=== PATIENT | female | born 1985 | race Caucasian/White ===

== ENCOUNTER 2017-01-05 07:00 | Inpatient (IN) ==
--- OUTSIDE RECORDS SUMMARY | 2017-01-05 07:06 | External Medical Summary | Continuity of Care Document ---
:1985 Author Organization [facility] Address [address] [place], [place] [address] Phone Support Name Relationship Address Phone Pietro Villaseñor spouse [address] [phone] [place] [address] Allergies, Adverse Reactions, Alerts Substance Reaction Severity Status Sulfa (Sulfonamide Antibiotics) Hives Unknown Active Medications Medication Instructions Dosage Effective Dates Status Comments (start - stop) 27 mg-0.8 take 1 by Oral route Not Available - Active mg tablet every day Problems Condition Effective Dates (start - stop) Clinical Status Follow-Up, Routine - Encounter for suprvsn of normal - , third trimester 36 weeks gestation of - Irregular Menses Supervision of other high risk - pregnancies, second trimester Other malformation of placenta, second - trimester 18 weeks gestation of - Supervision of other high risk - pregnancies, second trimester Other malformation of placenta, second - trimester 22 weeks gestation of - Supervision of other high risk - pregnancies, second trimester Other malformation of placenta, second - trimester Encounter for suprvsn of normal - , second trimester 26 weeks gestation of - Supervision of other high risk - pregnancies, second trimester Spotting complicating , - second trimester Encounter for screening of - mother 18 weeks gestation of - Spotting complicating , first - trimester Encounter for suprvsn of normal - , first trimester 13 weeks gestation of - Spotting complicating , - second trimester 14 weeks gestation of - Spotting complicating , - second trimester 14 weeks gestation of - Other malformation of placenta, third - trimester Spotting complicating , third - trimester 28 weeks gestation of - Other malformation of placenta, third - trimester Encounter for suprvsn of normal - , third trimester 28 weeks gestation of - Encounter for suprvsn of normal - , first trimester 10 weeks gestation of - 14 weeks gestation of - Placenta previa with hemorrhage, - second trimester Encounter for suprvsn of normal - , second trimester Encounter for suprvsn of normal - , third trimester 30 weeks gestation of - Encounter for suprvsn of normal - , third trimester 32 weeks gestation of - Encounter for suprvsn of normal - , third trimester Encounter for screening of - mother 35 weeks gestation of - Encounter for suprvsn of normal - , third trimester 37 weeks gestation of - Encounter for suprvsn of normal - , third trimester 38 weeks gestation of - Vaginal Discharge - Active Irregular Menses - Active Fatigue/Malaise - Active Threatened , Antepartum - Active Dysmenorrhea, Secondary - Active Active Procedures Procedure Date OB Visit No Charge Results Test Name Date and Time Measure Units Reference Range Abnormal Flag Comments Unknown Advance Directives Directive Yes / No Effective Date File Name Unknown Encounters Encounter Practice Location Reason(s) Diagnoses Date Provider Care Team Description For Visit Members Emily [place] Encounter for [place] In Womens suprvsn of normal 6-201 Layla. [facility], , third 7 700 [address] [email or web address] weeks Medical 1522, gestation of [facility], [address], 120, [id number], [place], [place], tel:[phone] , [place]. tel: [phone] [facility] [place] Encounter for Aug-3 [place] In Womens suprvsn of normal 0-201 Layla. [facility], , third 7 700 [address] [email or web address] weeks Medical 1522, gestation of [facility], [address], 120, [id number], [place], tel:[phone] , [place]. tel: [phone] [facility] [place] Encounter for Aug-2 [place] In Womens suprvsn of normal 3-201 Layla. [facility], , third 7 700 PO Box [email or web address] weeks Medical 1522, gestation of [facility], [address], 120, , [place], [place], tel:[phone] , [place]. tel: [phone] [facility] [place] Encounter for Aug-1 [place] In Womens suprvsn of normal 4-201 Layla. [facility] [place], , third 7 700 PO Box trimesterEncounte Medical 1522, r for [facility], screening of [address], [email or web address] weeks 120, , gestation of [facility] [place], tel:[phone] , [place]. tel: [phone] Emily [place] Encounter for Rom-2 [place] In Womens suprvsn of normal 6-201 Layla. [facility] [place], , third 7 700 PO Box [email or web address] weeks Medical 1522, gestation of [facility], [address], 120, , [place], tel:[phone] , [place]. tel: [phone] [facility] [place] Encounter for Rom-1 [place] In Womens suprvsn of normal 2-201 Layla. [facility] [place], , third 7 700 PO Box [email or web address] weeks Medical 1522, gestation of [facility], [address], 120, [id number], [place], tel:[phone] , [place]. tel: [phone] Emily [place] Other Tyler-2 [place] In Womens malformation of 8-201 Layla. Health [place], placenta, third 7 700 PO Box trimesterEncounte Medical 1522, r for suprvsn of [facility], normal , Cr Barnard, third [email or web address] 120, [id number], weeks gestation [place], [place], tel:[phone] , [place]. tel: [phone] Emily [place] Other Tyler-2 [place] In Womens Ultrasound malformation of 8-201 Layla. Health [place], placenta, third 7 700 PO Box trimesterSpotting Medical 1522, complicating [facility] [place], , third Cr Barnard, [email or web address] weeks 120, , gestation of [place], tel:[phone] , [place]. tel: [phone] Emily [place] Supervision of Tyler-1 Sobbing Referring In Womens other high risk 2-201 Curtis. Provider: Health PA, pregnancies, 7 700 Layla PO Box second Medical Charlotte L, 1522, trimesterOther Center [address] [place] [address], malformation [address], Medical [place], placenta, second Suite Center [id number], trimesterEncounte 120, Cr 120, [place] r for suprvsn of [place], tel:+ normal , [place] second [id number], [id number]. [email or web address] weeks [place]. tel: gestation of tel: [phone] Emily [place] Supervision of May-1 [place] In Womens other high risk 6-201 Layla. [facility] [place], pregnancies, 7 700 PO Box second Medical 1522, trimesterOther [facility], malformation of DrCr, placenta, second 120, [id number], [email or web address] weeks [place], [place] gestation of [place], tel:[phone] [address] , [place]. tel: [phone] Emily [place] Supervision of Apr-1 [place] In Womens other high risk 9-201 Layla. [facility] PA, pregnancies, 7 700 PO Box second Medical 1522, trimesterOther [facility], malformation of [address], placenta, second 120, [id number], [email or web address] weeks [place], gestation of [place], tel:[phone] , [place]. tel: [phone] [facility] [place] Supervision of Apr-1 [place] In Womens Ultrasound other high risk 9-201 Lalya. Health PA, pregnancies, 7 700 PO Box second Medical 1522, trimesterSpotting [facility], complicating Cr [address], , second 120, [id number], trimesterEncounte [place], [place] for [place], tel: screening of [phone] [email or web address] weeks , [place]. gestation of tel: [phone] [facility] [place] 14 weeks Mar-2 [place] In Womens gestation of 3-201 Nery. Health PA, pregnancyPlacenta 7 700 PO Box previa with Medical 1522, hemorrhage, [facility], second Cr Barnard, trimesterEncounte 120, , r for suprvsn of [place], [place] normal , [place], tel:+ second trimester [phone] , [place]. tel: [phone] [facility] [place] Spotting Mar-2 [place] In Womens Ultrasound complicating 3-201 Layla. [facility], , second 7 700 PO Box [email or web address] weeks Medical 1522, gestation of [facility], [address], 120, , [place], tel:[phone] , [place]. tel: [phone] [facility] [place] Spotting Mar-2 [place] In Womens complicating 0-201 Layla. [facility], , second 7 700 PO Box [email or web address] weeks Medical 1522, gestation of [facility], [address], 120, [id number], [place], tel:[phone] , [place]. tel: [phone] [facility] [place] Spotting Mar-1 [place] In Womens complicating 5-201 Layla. [facility], , first 7 700 PO Box trimesterEncounte Medical 1522, r for suprvsn of [facility], normal , Cr Barnard, first [email or web address] 120, [id number], weeks gestation [place], of [place], tel: [phone] , [place]. tel: [phone] [facility] [place] Encounter for Feb-2 [place] In Womens suprvsn of normal 0-201 Layla. Health DICK, , first 7 700 PO Box [email or web address] weeks Medical 1522, gestation of [facility], [address], 120, [id number], [place], [place], tel: [phone] , [place]. tel: [phone] [facility] [place] Irregular Menses Feb-0 [place] In Womens 7-201 Nery. Day JENNINGS, 7 700 [facility] 1522, [address] [place], [facility], 120, [id number], [place], [place], tel: [phone] , [place]. tel: [phone] Emily [place] Oct-2 [place] In Womens Follow-Up, 0-201 Layla. Health DICK, Routine 5 700 [facility] 1522, [address] [place], [facility] [place], 120, [id number], [facility] [place], tel: [phone] , [place]. tel: [phone] Emily [place] Rom-0 Charlotte Referring In Womens 8-201 Layla. Provider: Health DICK, 5 700 Layla PO Box Medical Charlotte L, 1522, [address], [facility] [place], 120, [place] [id number], [place] [facility] 120, [facility], [place], tel: [phone] [place], , [place]. [id number]. tel: tel: [phone] Emily [place] Apr-0 [place] In Womens 2-201 Layla. Day JENNINGS, 4 700 [facility] 1522, [address] [place], [facility] [place], 120, [id number], [facility], tel:[phone] [phone] , . tel: [phone] Family History Family Member Diagnosis Age At Onset No family history of Ovarian Cancer No family history of Hypertension No family history of Kidney Problems No family history of Epilepsy Maternal Grandmother Stroke No family history of Diabetes Paternal Grandmother Uterine Cancer No family history of Breast Cancer No family history of Thyroid Disorder No family history of Lung Disease No family history of Osteoporosis Maternal Grandfather Cardiovascular Disease Maternal Grandmother Cancer, colon Immunizations Vaccine Date Status Comments Tdap completed Source: New Immunization Record Tdap completed Source: New Immunization Record Payers Payer name Insurance type Covered alliance party ID Authorization(s) Med[employer] [place] [id number] [employer] Share [place] [id number] [employer] [place] [id number] [employer] Share Ins [place] [id number] Social History Type Description Quantity Date Captured Alcohol Use Details No Caffeine Use Details Unknown Tobacco Use Status Unknown Smoking Status Never smoker Vital Signs Date / Height Weight BMI Pulse Blood Temperature Respiratory Body Head BMI Time: Rate Pressure Rate Surface Circumference percentile Area Unknown Chief Complaint And Reason For Visit Unknown Chief Complaint And Reason For Visit Reason For Referral Reason For Referral Unknown Plan Of Care Date Type Action Status Appointment Fanny Villaseñor BOOKED Future Order: Radiology Order Complete OB Ultrasound > 14 Ordered Weeks ([id number]) Future Order: Radiology Order Ultrasound, OB Limited ([id number]) Ordered Future Order: Radiology Order Ultrasound, OB Limited ([id number]) Ordered Date Type Problem Goal Intervention Status Start Date Unknown. History Of Present Illness Encounter Date Complaint History Of Present Illness This patient has no known history of present illness Functional Status Encounter Date Functional Assessment Cognitive Assessment Unknown Medications Administered Medication Instructions Dosage Effective Dates (start - stop) Status Comments Drug Treatment Unknown Instructions Date Instruction Additional Information HIV and other routine tests risk factors identified by history anticipated course of care nutrition and weight gain counseling, special diet toxoplasmosis precautions (cats / raw meat) sexual activity exercise indications for ultrasound influenza vaccine environmental / work hazards travel new ob handbook Acog Docs use of any medications (including supplements, vitamins, herbs, OTC drugs) domestic violence seat belt use childbirth classes / hospital facilities hospital registration genetic testing
--- OUTSIDE RECORDS SUMMARY | 2017-01-05 07:06 | External Medical Summary | Continuity of Care Document ---
:1985 Author Organization [facility] Address [address] [place], [place] [id number] Phone Support Name Relationship Address Phone Pietro Villaseñor spouse [address] [phone] [place] [address] Allergies, Adverse Reactions, Alerts Substance Reaction Severity [...] - mother 35 weeks gestation of - Irregular Menses Supervision [...] third trimester 28 weeks gestation of - 10 weeks gestation of - Encounter for suprvsn of normal - , first trimester 14 weeks gestation of - Placenta previa with hemorrhage, - second trimester Encounter for suprvsn of normal - , second trimester Encounter for suprvsn of normal - , third trimester 30 weeks gestation of - Encounter for suprvsn of normal - , third trimester 32 weeks gestation of - Encounter for suprvsn of normal - , third trimester 36 weeks gestation of - Encounter for suprvsn of normal - , third trimester 37 weeks gestation of - Vaginal Discharge - Active Irregular Menses - Active Fatigue/Malaise - Active Threatened , Antepartum - Active Dysmenorrhea, Secondary - Active Active Procedures Procedure Date OB Visit No Charge Cult, pathgnc orgnsm, screen Results Test Name Date and Time Measure Units Reference Range Abnormal Flag Comments Panel Description: STREPTOCOCCUS, GROUP B CULTURE STREPTOCOCCUS, GROUP B 15:23:00 SEE NOTE STREPTOCOCCUS, GROUP B CULTURE CULTURE MICRO NUMBER: [id number] TEST STATUS: FINAL SPECIMEN SOURCE: VAGINAL/ANORECTAL SPECIMEN QUALITY: ADEQUATE RESULT: No group B Streptococcus isolatedTest performed at [id number] [place] [address]Qwusdlmg: SANTI VALDEZ DO,MPH Advance Directives Directive Yes / No Effective Date File Name Unknown Encounters Encounter Practice Location Reason(s) Diagnoses Date Provider Care Team Description For Visit Members Emily [place] Encounter for Aug-3 [place] In Womens suprvsn of normal 0-201 Layla. [facility], , third 7 700 PO Box [email or web address] weeks Medical 1522, gestation of [facility], [address], 120, , [place], [place], tel:[phone] [address] , [place]. tel: [phone] Emily [place] Encounter for Aug-2 [place] In Womens suprvsn of normal 3-201 Layla. [facility], , third 7 700 PO Box [email or web address] weeks Medical 1522, gestation of [facility], [address], 120, , [place], [place], tel:[phone] , [place]. tel: [phone] Emily [place] Encounter for Aug-1 [place] In Womens suprvsn of normal 4-201 Layla. [facility], , third 7 700 PO Box trimesterEncounte Medical 1522, r for [facility], screening of [address], [email or web address] weeks 120, , gestation of [facility] [place], tel:[phone] , [place]. tel: [phone] Emily [place] Encounter for Rom-2 [place] In Womens suprvsn of normal 6-201 Layla. [facility] PA, , third 7 700 PO Box [email or web address] weeks Medical 1522, gestation of [facility], [address], 120, [id number], [place], tel:[phone] , [place]. tel: [phone] Emily [place] Encounter for Rom-1 [place] In Womens suprvsn of normal 2-201 Layla. [facility] PA, , third 7 700 PO Box weeks Medical 1522, gestation of [facility], [address], 120, [id number], [place], [place], tel:[phone] , [place]. tel: [phone] Emily [place] Other Tyler-2 [place] In Womens malformation of 8-201 Layla. Health PA, placenta, third 7 700 PO Box trimesterEncounte Medical 1522, r for suprvsn of [facility], normal , Cr [address], third [email or web address] 120, [id number], weeks gestation [place], [place], tel:[phone] , [place]. tel: [phone] Emily [place] Other Tyler-2 [place] In Womens Ultrasound malformation of 8-201 Layla. Health PA, placenta, third 7 700 PO Box trimesterSpotting Medical 1522, complicating [facility] [place], , third Cr Barnard, [id number] weeks 120, [id number], gestation of [place], tel:901 , [place]. tel: [phone] Emily [place] Supervision of Tyler-1 Sobbing Referring In Womens other high risk 2-201 Curtis. Provider: Health PA, pregnancies, 7 700 Layla PO Box second Medical Charlotte L, 1522, trimesterOther Center [address] [place] [address], mal[address], Medical [place], placenta, second [address] [id number], trimesterEncounte 120, Cr 120, [place] r for suprvsn of [place], tel:+ normal , [place], second [address], [id number]. [email or web address] weeks [place]. tel: gestation of tel: [phone] Emily [place] Supervision of May- [place] In Womens other high risk 6-201 Layla. [facility] PA, pregnancies, 7 700 PO Box second Medical 1522, trimesterOther [facility], malformation of Cr Barn[address], placenta, second 120, [id number], [email or web address] weeks [place], gestation of [place], tel: [phone] , [place]. tel: [phone] Emily [place] Supervision of Apr-1 [place] In Womens other high risk 9-201 Layla. Health PA, pregnancies, 7 700 PO Box second Medical 1522, trimesterOther [facility], malformation of [address], placenta, second 120, [id number], [email or web address] weeks [place], gestation of [place], tel:[phone] , [place]. tel: [phone] Emily [place] Supervision of Apr-1 [place] In Womens Ultrasound other high risk 9-201 Layla. Health PA, pregnancies, 7 700 PO Box second Medical 1522, trimesterSpotting [facility], complicating [address], , second 120, [id number], trimesterEncounte [place], [place], tel:+ screening of [phone] [email or web address] weeks , [place]. gestation of tel: [phone] [facility] [place] 14 weeks Mar-2 [place] In Womens gestation of 3-201 Nery. Health DICK, pregnancyPlacenta 7 700 PO Box previa with Medical 1522, hemorrhage, [facility], second Cr Barnard, trimesterEncounte 120, , r for suprvsn of [place], normal , [place], tel:+ second trimester [phone] , [place]. tel: [phone] Emily [place] Spotting Mar-2 [place] In Womens Ultrasound complicating 3-201 Layla. Health PA, , second 7 700 PO Box weeks Medical 1522, gestation of [facility], [address], 120, , [place], tel:[phone] , [place]. tel: [phone] Emily [place] Spotting Mar-2 [place] In Womens complicating 0-201 Layla. [facility] PA, , second 7 700 PO Box [email or web address] weeks Medical 1522, gestation of [facility], [address], 120, [id number], [place], tel:[phone] , [place]. tel: [phone] Emily [place] Spotting Mar-1 [place] In Womens complicating 5-201 Layla. [facility], , first 7 700 PO [facility], [facility], normal , Cr Barnard, first [email or web address] 120, [id number], weeks gestation [place], of [place], tel:+ [phone] , [place]. tel: [phone] [facility] [place] 10 weeks Feb-2 [place] In Womens gestation of 0-201 Layla. Health DICK, pregnancyEncounte 7 700 PO Box r for suprrenetta [facility] 1522, normal , [facility], first trimester [address], 120, , [place], [place], tel: [phone] , [place]. tel: [phone] [facility] [place] Irregular Menses Feb-0 [place] In Womens 7-201 Nery. Day JENNINGS, 7 700 PO Box Medical 15[address], [address] [place], [address], 120, , [place], [place], tel:[phone] , [place]. tel: [phone] Emily [place] Oct-2 [place] In Womens Follow-Up, 0-201 Layla. Health DICK, Routine 5 700 PO Box Medical 15[address], [address] [place], [facility] LAMAR, 120, , [facility] [place], tel:[phone] , [place]. tel: [phone] Emily [place] Rom-0 Charlotte Referring In Womens 8-201 Layla. Provider: Day JENNINGS, 5 700 Layla PO Box Medical Charlotte L, 1522, [address], [facility] [place], 120, [address] [id number], [place] [facility] 120, [place], [place], tel: [phone] [place], , [place]. [id number]. tel: tel:+ [phone] Emily [place] Apr-0 [place] In Womens 2-201 Layla. Day JENNINGS, 4 700 PO Box Medical 1522, [address] [place], [facility] [place], 120, [id number], [place], tel:+ [phone] , . tel: [phone] Family History Family Member Diagnosis Age At [...] Record Payers Payer name Insurance type Covered green party ID Authorization(s) Medi-Share CI [id number] [facility] [place] Medical Share Ins [place] [id number] Medi-Share CI [id number] [facility] Medical Share Ins [place] [id number] Social History Type Description Quantity Date Captured Alcohol Use Details No Caffeine Use Details Unknown Tobacco Use Status Unknown Smoking Status Never smoker Vital Signs Date / Height Weight BMI Pulse Blood Temperature Respiratory Body Head BMI Time: Rate Pressure Rate Surface Circumference percentile Area .8 2 2:37 kg/m PM eter (2) 172.20 26.9 123/77 -2017 lbs 7 mm[Hg] 2:45 kg/m PM eter (2) Chief Complaint And Reason For Visit Unknown Chief Complaint And Reason For Visit Reason For Referral Reason For Referral Unknown Plan Of Care Date Type Action Status Appointment Fanny Villaseñor BOOKED Appointment Fanny Villaseñor BOOKED Future Order: Radiology Order Complete OB Ultrasound > 14 Ordered Weeks ([id number]) Future Order: Radiology Order Ultrasound, OB Limited ([id number]) Ordered Future Order: Radiology Order Ultrasound, OB Limited ([id number]) Ordered Date Type Problem Goal Intervention Status [...]
--- OUTSIDE RECORDS SUMMARY | 2017-01-05 07:06 | External Medical Summary | Continuity of Care Document ---
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 [facility] [place], pregnancyEncounte 7 700 [address] r for suprvsn of Medical 1522, normal , [facility], third trimester Cr [place], 120, [id number], [place] LAM[place], tel:[phone] , . tel:[phone] Emily [place] Encounter for Oct- [place] In Womens suprvsn of normal 2-201 [facility] [place], , third 7 700 PO Box weeks Medical 1522, gestation of [facility], Cr [place], 120, [id number], [place], tel:[phone] , [place]. tel: [phone] Emily [place] Other Tyler-2 [place] In Womens malformation of 8-201 [facility]la. [facility] [place], placenta, third 7 700 PO Box [facility] 1522, r for suprvsn of [facility], normal , Cr [place], third [email or web address] 120, [id number], weeks gestation [place], [place], tel:[phone] , [place]. tel: [phone] Emily [place] Spotting Tyler-2 [place] In Womens Ultrasound complicating 8-201 [facility]. [facility] [place], , third 7 700 PO Box trimesterOther Medical 1522, malformation of [facility], placenta, third rC Barnard, [email or web address] weeks 120, , gestation of [place], tel:[phone] , [place]. tel: [phone] Emily [place] Supervision of Tyler-1 Sobbing Referring In Womens other high risk 2-201 Curtis. Provider: Health PA, pregnancies, 7 700 Layla PO Box second Medical Charlotte L, 1522, trimesterOther Center [address] [place] [address], malformation of [facility], Medical [place], placenta, second [facility] [id number], trimesterEncounte 120, Cr 120, [place] r for suprvsn of Alli [place], tel:+ normal , [place] second [address], [id number]. [email or web address] weeks [place]. tel: gestation of tel: [phone] Emily [place] Supervision of May-1 [place] In Womens other high risk 6-201 [facility]. [facility] [place], pregnancies, 7 700 PO Box second Medical 1522, trimesterOther [facility], malformation of DrCr, placenta, second 120, [id number], [email or web address] weeks [place], [place] gestation of [place], tel:[phone] [address] , [place]. tel: [phone] Emily [place] Supervision of Apr-1 [place] In Womens other high risk 9-201 [facility]. [facility] [place], pregnancies, 7 700 PO Box second Medical 1522, trimesterOther [facility], malformation of Cr Barnard, placenta, second 120, [id number], weeks [place], [place] gestation of [place], tel:[phone] , [place]. tel: [phone] [facility] Supervision of Apr-1 [place] In Womens Ultrasound other high risk 9-201 Layla. [facility] [place], pregnancies, 7 700 PO Box second Medical 1522, trimesterSpotting [facility], complicating Cr Barnard, , second 120, [id number], trimesterEncounte [place], [place] r for [place], tel: screening of [phone] [email or web address] weeks , [place]. gestation of tel: [phone] [facility] Placenta previa Mar-2 Sherwood In Womens with hemorrhage, 3-201 Nery. Health [place], second 7 700 PO Box [facility] Medical 1522, r for suprvsn of [facility], normal , Cr Barnard, second 120, [id number], [email or web address] weeks [place], [place] gestation of [place], tel:[phone] [address] , [place]. tel: [phone] [facility] Spotting Mar-2 [place] In Womens Ultrasound complicating 3-201 [facility]. [facility] [place], , second 7 700 PO Box [email or web address] weeks Medical 1522, gestation of [facility], Cr [place], 120, [id number], [place], tel:[phone] , [place]. tel: [phone] [facility] Spotting Mar-2 [place] In Womens complicating 0-201 [facility]. [facility], , second 7 700 PO Box [email or web address] weeks Medical 1522, gestation of [facility], Cr [place], 120, [id number], [place], tel:[phone] , [place]. tel: [phone] [facility] Spotting Mar-1 [place] In Womens complicating 5-201 Layla. [facility] [place], , first 7 700 PO Box trimesterEncounte Medical 1522, r for suprvsn of [facility], normal , Cr [place], first [email or web address] 120, [id number], weeks gestation [place], of [place], tel:+ [phone] , [place]. tel: [phone] [facility] Encounter for Feb-2 [place] In Womens suprvsn of normal 0-201 Layla. Health DICK, , first 7 700 PO Box [email or web address] weeks Medical 1522, gestation of [facility], Cr Barnard, 120, [id number], [place], tel: [phone] , [place]. tel: [phone] [facility] Irregular Menses Feb-0 [place]wood In Womens 7-201 Nery. Day JENNINGS, 7 700 [facility] [address], [address] [place], [facility], 120, [id number], [place], tel: [phone] , [place]. tel: [phone] Emily [place] Oct-2 [place] In Womens Follow-Up, 0-201 Layla. Health DICK, Routine 5 700 [facility] [address], [address] [place], [facility] [place], 120, [id number], [place], tel: [phone] , [place]. tel: [phone] Emily [place] Rom-0 Charlotte Referring In Womens 8-201 Layla. Provider: Health DICK, 5 700 Layla PO Box Medical Charlotte L, 1522, [address], [facility] [place], 120, [place] [id number], Alli [facility] 120, [facility], Alli, tel: [phone] [place], , [place]. [id number]. tel: tel: [phone] Emily [place] Apr-0 [place] In Womens 2-201 Layla. Day JENNINGS, 4 700 [facility] [address], [address] [place], [facility] [place], 120, [id number], [facility] [place], tel:[phone] , . tel: [phone] Family History Family Member Diagnosis Age At [...] Covered alliance party ID Authorization(s) [employer] [place] [id number] [facility] [place] [id number] [employer] [place] [id number] [facility] [place] [id number] Social History Type Description Quantity Date Captured [...] Fanny Villaseñor BOOKED Appointment Fanny Villaseñor BOOKED Appointment Fanny Villaseñor BOOKED Appointment Fanny Villaseñor BOOKED Appointment Fanny Villaseñor BOOKED Future Order: Radiology Order Complete OB Ultrasound > 14 Ordered Weeks ([id number]) Future Order: Radiology Order Ultrasound, OB Limited ([id number]) Ordered Future Order: Radiology Order Ultrasound, OB Limited ([id number]) Ordered Date Type Problem Goal Intervention Status [...]
--- OUTSIDE RECORDS SUMMARY | 2017-01-05 07:06 | External Medical Summary | Continuity of Care Document ---
:1985 Author Organization [facility] Care Team Providers Name Role Phone [employer] Unavailable Unavailable Encounters Location Location Encounter Encounter Reason Attending ADM DC Status Source Details Type Number For Provider Date Date Visit [facility] Non [id number] 11/20 11/20 Active [facility] Billable /2014 pos;s [facility] CLI [id number] Fanny Lay 11/20 11/20 Active Children&a /2014 pos;s [facility] Family History Value Date Source Advance Directives Order Name Results Value Date Source
--- OUTSIDE RECORDS SUMMARY | 2017-01-05 07:06 | External Medical Summary | Continuity of Care Document ---
:1985 Author Organization [facility] [facility] Address [address] [place], [place] [address] Phone Support Name Relationship Address Phone Pietro Villaseñor spouse [address] [phone] [place] [address] Allergies, Adverse Reactions, Alerts Substance Reaction Severity Status Sulfa (Sulfonamide Antibiotics) Hives Unknown Active Medications Medication Instructions Dosage Effective Dates Status Comments (start - stop) 27 mg-0.8 take 1 by Oral route Not Available - Active mg tablet every day Problems Condition Effective Dates (start - stop) Clinical Status Follow-Up, Routine - Irregular Menses Supervision of other high risk - pregnancies, second trimester Other malformation of placenta, second - trimester 18 weeks gestation of - Supervision of other high risk - pregnancies, second trimester Other malformation of placenta, second - trimester 22 weeks gestation of - Supervision of other high risk - pregnancies, second trimester Other malformation of placenta, second - trimester 26 weeks gestation of - Encounter for suprvsn of normal - , second trimester Supervision of other high risk - pregnancies, second trimester Spotting complicating , - second trimester 18 weeks gestation of - Encounter for screening of - mother Spotting complicating , first - trimester Encounter [...] first trimester 10 weeks gestation of - Encounter for suprvsn of normal - , third trimester 30 weeks gestation of - 32 weeks gestation of - Encounter for suprvsn of normal - , third trimester Encounter for suprvsn of normal - , third trimester Encounter for screening of - mother 35 weeks gestation of - Encounter for suprvsn of normal - , third trimester 36 weeks gestation of - Vaginal Discharge - Active Irregular Menses - Active Fatigue/Malaise - Active Threatened , Antepartum - Active Dysmenorrhea, Secondary - Active Active Procedures Procedure Date Unknown Results Test Name Date and Time Measure Units Reference Range Abnormal Flag Comments Unknown Advance Directives Directive Yes / No Effective Date File Name Unknown Encounters Encounter Practice Location Reason(s) Diagnoses Date Provider Care Team Description For Visit Members Emily [place] Encounter for [place] In Womens suprvsn of normal 3-201 [facility], , third 7 700 PO Box [email or web address] weeks Medical 1522, gestation of [facility] Cr Barnard [place], 120, [id number], [place] Alli [place], tel:[phone] [address] , [place]. tel: [phone] [facility] Encounter for Aug-1 [place] In Womens suprvsn of normal 4-201 [facility]la. [facility] [place], , third 7 700 PO Box trimesterEncounte Medical 1522, r for [facility], screening of Cr Barnard, [email or web address] weeks 120, [id number], gestation of [place], tel:[phone] , [place]. tel: [phone] Emily [place] Aug-0 [place] In Womens 4-201 Layla. [facility] [place], 7 700 PO Box Medical 1522, [facility], Cr Barnard, 120, [id number], [place], tel:[phone] [address] , [place]. tel: [phone] Emily [place] 32 weeks Rom-2 [place] In Womens gestation of 6-201 Layla. [facility] PA, pregnancyEncounte 7 700 PO Box r for suprvsn of [facility] 1522, normal , [facility], third trimester Cr [address], 120, [id number], [place], tel:[phone] [address] , [place]. tel: [phone] Emily [place] Encounter for Rom-1 [place] In Womens suprvsn of normal 2-201 Layla. [facility] [place], , third 7 700 PO Box [email or web address] weeks Medical 1522, gestation of [facility], Cr Barnard, 120, [id number], [place], tel:[phone] [address] , [place]. tel: [phone] Emily [place] Other Tyler-2 [place] In Womens malformation of 8-201 Layla. [facility] [place], placenta, third 7 700 PO Box trimesterEncounte Medical 1522, r for suprvsn of [facility], normal , Cr Barnard, third [email or web address] 120, [id number], weeks gestation [place], [place], tel:[phone] [address] , [place]. tel:[phone] Emily [place] Spotting Tyler-2 [place] In Womens Ultrasound complicating 8-201 Layla. [facility] [place], , third 7 700 PO Box trimesterOther Medical 1522, malformation of [address], placenta, third Cr Barnard, [email or web address] weeks 120, [id number], gestation of [place], tel:[phone] , [place]. tel: [phone] Emily [place] Supervision of Tyler- Sobbing Referring In Womens other high risk 2-201 Curtis. Provider: Health PA, pregnancies, 7 700 Layla PO Box second Medical Charlotte L, 1522, trimesterOther Center [address], malformation of [address], Medical [place], placenta, second [facility] [id number], [email or web address] weeks 120, Cr 120, [place] gestation of Alli [place], tel: pregnancy[place] [address], [id number]. normal , [place]. tel: second trimester tel: [phone] Emily [place] Supervision of May- [place] In Womens other high risk 6-201 Layla. Health PA, pregnancies, 7 700 PO Box second Medical 1522, trimesterOther Center Circle, malformation of [address] [place], placenta, second 120, [id number], [email or web address] weeks [place], [place] gestation of [place], tel:[phone] [address] , [place]. tel: [phone] Emily [place] Supervision of Apr-1 [place] In Womens other high risk 9-201 Layla. Health PA, pregnancies, 7 700 PO Box second Medical 1522, trimesterOther Center [address], malformation of [address] [place], placenta, second 120, [id number], [email or web address] weeks [place], [place] gestation of [place], tel:[phone] , [place]. tel: [phone] Emily [place] Supervision of Apr-1 [place] In Womens Ultrasound other high risk 9-201 Layla. Health PA, pregnancies, 7 700 PO Box second Medical 1522, trimesterSpotting [address], complicating [address] Barn[place], , second 120, [id number], weeks [place], [place] gestation of [place], tel:[phone] pregnancyEncounte [phone] r for , [place]. screening of tel: [phone] [facility] Placenta previa Mar-2 Sherwood In Womens with hemorrhage, 3-201 Nery. Health PA, second 7 700 PO Box trimesterEncounte Medical 1522, r for suprvsn of [facility], normal , Cr Barnard, second 120, [id number], [email or web address] weeks [place], [place] gestation of [place], tel: [phone] [address] , [place]. tel: [phone] [facility] Spotting Mar-2 [place] In Womens Ultrasound complicating 3-201 Layla. Health PA, , second 7 700 PO Box [email or web address] weeks Medical 1522, gestation of [facility], Cr Barnard, 120, [id number], [place], tel:[phone] , [place]. tel: [phone] [facility] Spotting Mar-2 [place] In Womens complicating 0-201 Layla. [facility] PA, , second 7 700 PO Box [email or web address] weeks Medical 1522, gestation of [facility], Cr Barnard, 120, , [place], [place], tel:[phone] , [place]. tel:[phone] [facility] Spotting Mar-1 [place] In Womens complicating 5-201 Layla. [facility] PA, , first 7 700 PO Box trimesterEncounte Medical 1522, r for suprvsn of [facility], normal , Cr Barnard, first [email or web address] 120, [id number], weeks gestation [place], [place] of [place], tel:[phone] , [place]. tel:[phone] [facility] Encounter for Feb-2 [place] In Womens suprvsn of normal 0-201 Layla. [facility] PA, , first 7 700 PO Box [email or web address] weeks Medical 1522, gestation of [facility], Cr Barnard, 120, [id number], [place], tel:[phone] , [place]. tel:[phone] Emily [place] Irregular Menses Feb-0 Sherwood In Womens 7-201 Nery. Health PA, 7 700 PO Box Medical 15[address], [address] [place], [facility] [place], 120, [id number], [place], tel:[phone] , [place]. tel: [phone] Emily [place] Oct-2 [place] In Womens Follow-Up, 0-201 Layla. Health PA, Routine 5 700 PO Box Medical 15[address], [address] [place], [facility] [place], 120, [id number], [place], tel:[phone] , [place]. tel: [phone] Emily [place] Rom-0 Charlotte Referring In Womens 8-201 Layla. Provider: Day JENNINGS, 5 700 Layla PO Box Medical Charlotte L, 1522, [place] [address] [address] [place], [facility] [place], 120, [place] [id number], [facility] 120, [place], [place], tel:[phone] [place], , [place]. [id number]. tel: tel: [phone] Emily [place] Apr-0 [place] In Womens 2-201 Layla. Health DICK, 4 700 PO Box Medical 15[address], [address] [place], [facility] [place], 120, [id number], [place], tel: [phone] , [place]. tel: [phone] Family History Family Member Diagnosis Age At [...] Insurance type Covered alliance party ID Authorization(s) [facility] CI [id number] [facility] CI [id number] [facility] CI [id number] [facility] Medical Share Ins [place] [id number] Social History Type Description Quantity Date Captured Unknown Vital Signs Date / Height Weight BMI [...] Complete OB Ultrasound > 14 Ordered Weeks ([id number]) Future Order: Radiology Order Ultrasound, OB Limited ([id number]) Ordered Future Order: Radiology Order Ultrasound, OB Limited ([id number]) Ordered Date Type Problem Goal Intervention Status [...] influenza vaccine environmental / work hazards travel use of any medications (including supplements, vitamins, herbs, OTC drugs) new ob handbook [facility] domestic violence seat belt use childbirth classes / hospital facilities hospital registration genetic testing
--- OUTSIDE RECORDS SUMMARY | 2017-01-05 07:06 | External Medical Summary | Referral Summary ---
:1985 Author Organization [facility] Address [address] [place] [address] [place] [address] Care Team Providers Name Role Phone No PCP, States Primary Care Physician Encounter VC Date(s): 02/22/16 - 02/22/16 [facility] [address] [place] [address]- [place] Discharge Diagnosis: Acute tonsillitis Discharge Disposition: 01-Home or Self Care Attending Physician: Julius Marr DO Admitting Physician: Julius Marr DO Vital Signs Most recent to oldest [Reference Range]: 1 Temperature Tympanic [36.6-38.1 degC] 37.9 degC (02/22/16 2:27 PM) Peripheral Pulse Rate [60-100 bpm] 105 bpm *HI* (02/22/16 2:27 PM) Respiratory Rate [14-20 br/min] 14 br/min (02/22/16 2:27 PM) Blood Pressure [90-140/60-90 mmHg] 100/62 mmHg (02/22/16 2:27 PM) SpO2 99 % (02/22/16 2:27 PM) Problem List No data available for this section Allergies, Adverse Reactions, Alerts Substance Reaction Severity Status sulfa drugs1 Active 1Rash Medications amoxicillin 875 mg oral tablet 875 mg 1 tabs, Oral, BID, X 10 days, # 20 tabs, 0 Refill(s), Pharmacy: [facility] #[id number], 1 tabs Oral BID,x10 days Start Date: 02/22/16 Stop Date: 03/03/16 Status: Ordered Results No data available for this section Immunizations No data available for this section Procedures No data available for this section Social History Social History Type Response Smoking Status Never smoker Assessment and Plan Extracted from: Title: Office Visit Note Author: Julius Marr DO Date: 02/22/16 Assessment/Plan Acute tonsillitis 1. Clinical finding consistent with acute tonsillitis 2. Amoxicillin twice a day for 10 days 3. Tylenol for discomfort 4. Follow-up for worsening presentation Ordered: amoxicillin, 875 mg 1 tabs, Oral, BID, X 10 days, # 20 tabs, 0 Refill(s), Pharmacy: [facility] #[id number], 1 tabs Oral BID,x10 days
--- OUTSIDE RECORDS SUMMARY | 2017-01-05 07:06 | External Medical Summary | Continuity of Care Document ---
:1985 Author Organization [facility] Address [address] [place], [place] [id number] Phone Support Name Relationship Address Phone Pietro Villaseñor spouse [phone] [phone] [place] [address] Allergies, Adverse Reactions, Alerts Substance Reaction Severity [...] third trimester 32 weeks gestation of - Irregular Menses Supervision [...] suprvsn of normal - , third trimester 35 weeks gestation of - Vaginal Discharge - [...] Care Team Description For Visit Members Emily aCrson Encounter for [place] [facility] suprvsn [facility] 4-201 [facility] , third 7 700 [address] [email or web address] weeks Medical 1522, gestation of [facility] [address], 120, [id number], [place], tel:[phone] , [place]. tel:[phone] Emily [place] Encounter for [place] In Womens suprvsn of normal 6-201 [facility]la. [facility], , third 7 700 [address] [email or web address] weeks Medical 1522, gestation of [facility], [address], 120, [id number], [place], tel:[phone] , [place]. tel: [phone] Emily [place] Encounter for Rom-1 [place] In Womens suprvsn of normal 2-201 [facility]. [facility] [place], , third 7 700 [address] [email or web address] weeks Medical 1522, gestation of [facility], [address], 120, , [place], [place], tel:[phone] , [place]. 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 [place], placenta, third 7 700 PO Box trimesterEncounte Medical 1522, r for suprvsn of [facility], normal , [address], third 120, , weeks gestation [place], [place] of [place], tel:[phone] , [place]. tel: [phone] Emily [place] Spotting Tyler-2 [place] In Womens Ultrasound complicating 8-201 [facility]. [facility] [place], , third 7 700 PO Box trimesterOther Medical 1522, malformation of [facility], placenta, third [address], weeks 120, , gestation of [facility] [place], tel:[phone] , [place]. tel: [phone] Emily [place] Supervision of Tyler-1 Sobbing Referring In Womens other high risk 2-201 Curtis. Provider: Health [place], pregnancies, 7 700 Layla PO Box second Medical Charlotte L, 1522, trimesterOther Center [address] [place] [address], malformation of [facility], [facility], placenta, second [facility] , trimesterEncounte 120, Cr 120, [place] r for suprvsn of Alli [place], [place]: [place] , [place] second [id number], [id number]. [email or web address] weeks [place]. tel: gestation of tel: [phone] [facility] Supervision of May-1 [place] In Womens other high risk 6-201 [facility]. [facility] [place], pregnancies, 7 700 PO Box second Medical 1522, trimesterOther [facility], malformation of [address], placenta, second 120, [id number], weeks [place], [place] gestation of [place], tel: [phone] , [place]. tel: [phone] Emily [place] Supervision of Apr-1 [place] In Womens other high risk 9-201 [facility] [place], pregnancies, 7 700 PO Box second Medical 1522, trimesterOther [facility], malformation of [address], placenta, second 120, [id number], [email or web address] weeks [place], [place] gestation of [place], tel: [phone] , [place]. tel: [phone] Emily [place] Supervision of Apr-1 [place] In Womens Ultrasound other high risk 9-201 [facility]. [facility] [place], pregnancies, 7 700 PO Box second Medical 1522, trimesterSpotting [facility], complicating [address], , second 120, [id number], trimesterEncounte [place], [place] r for [place], tel: screening of [phone] weeks , [place]. gestation of tel: [phone] [facility] Placenta previa Mar-2 [place] In Womens with hemorrhage, 3-201 [facility]. [facility] [place], second 7 700 PO Box trimesterEncounte Medical 1522, r for suprvsn of [facility], normal , [address], second 120, [id number], [email or web address] weeks [place], [place] gestation of [place], tel: [phone] , [place]. tel: [phone] Emily [place] Spotting Mar-2 [place] In Womens Ultrasound complicating 3-201 [facility] [place], , second 7 700 PO Box [email or web address] weeks Medical 1522, gestation of [facility], [address], 120, [id number], [place], tel: [phone] , [place]. tel:[phone] [facility] Spotting Mar-2 [place] In Womens complicating 0-201 [facility], , second 7 700 PO Box [email or web address] weeks Medical 1522, gestation of [facility], [address], 120, [id number], [place], tel:[phone] , [place]. tel: [phone] [facility] Spotting Mar-1 [place] In Womens complicating 5-201 [facility] [place], , first 7 700 PO Box trimesterEncounte Medical 1522, r for suprvsn of [facility], normal , [address], first [email or web address] 120, [id number], weeks gestation [place], [place], tel:[phone] , [place]. tel: [phone] [facility] Encounter for Feb-2 [place] In Womens suprvsn of normal 0-201 [facility] [place], , first 7 700 PO Box [email or web address] weeks Medical 1522, gestation of [facility], [address], 120, [id number], [place], tel:[phone] , [place]. tel: [phone] [facility] Irregular Menses Feb-0 [place] In Womens 7-201 Nery. [facility] DICK, 7 700 PO Box Medical 1522, [address] [place], 120, [id number], [place], tel:[phone] , [place]. tel: [phone] Emily [place] Oct-2 [place] In Womens Follow-Up, 0-201 Layla. [facility] DICK, Routine 5 700 PO Box Medical 1522, [address] Ste [place], 120, [id number], [place], tel:[phone] , [place]. tel:[phone] Emily [place] Rom-0 Charlotte Referring In Womens 8-201 Layla. Provider: Health DICK, 5 700 Layla PO Box Medical Charlotte L, 1522, [place] [address] [address] [place], [facility], 120, [place] [id number], [facility], [place], [place], tel:[phone] [place], , . [id number]. tel: tel: [phone] Emily [place] In Womens 2-201 Layla. [facility], 4 700 [facility] 15[address], [address] [place], [facility], 120, [id number], [place], [email or web address]], tel: [phone] , . tel: [phone] Family History Family Member Diagnosis Age At [...] Record Payers Payer name Insurance type Covered libertarian ID Authorization(s) [place] [place] [id number] [employer] [place] [id number] [place] [place] [id number] [employer] [place] [id number] Social History Type Description Quantity Date Captured Alcohol Use Details No Caffeine Use Details Unknown Tobacco Use Status Unknown Smoking Status Never smoker Vital Signs Date / Height Weight BMI Pulse Blood Temperature Respiratory Body Head BMI Time: Rate Pressure Rate Surface Circumference percentile Area 164.90 25.8 lbs 2 mm[Hg] 10:57 kg/m AM eter (2) Chief Complaint And Reason For Visit Unknown Chief Complaint And Reason For Visit Reason For Referral Reason For Referral Unknown Plan Of Care Date Type Action Status Appointment Fanny Villaseñor BOOKED Appointment Fanny Villaseñor BOOKED Appointment Fanny Villaseñor BOOKED Appointment Fanny Villaseñor BOOKED Future Order: Radiology Order Complete OB Ultrasound > 14 Ordered Weeks ([id number]) Future Order: Radiology Order Ultrasound, OB Limited ([id number]) Ordered Future Order: Radiology Order Ultrasound, OB Limited ([id number]) Ordered Date Type Problem Goal Intervention Status [...]
[2017-01-05] MEDS ORDERED: MAG-AL + SIM ORAL LIQUID 30ml PO PRN ×2 (07:15→10:20)
[2017-01-05] MEDS ORDERED: METHYLERGONOVINE 0.2 MG/ML INJECTION IM PRN (07:15)
[2017-01-05] MEDS ORDERED: ACETAMINOPHEN 500 MG TABLET PO PRN ×2 (07:15→10:20)
[2017-01-05] MEDS ORDERED: LIDOCAINE 1% (10mg/ml) 2mL INJ PF SDV ID PRN (07:15)
[2017-01-05] MEDS ORDERED: CALCIUM CARBONATE Chewable 500mg TABLET PO PRN ×2 (07:15→10:20)
[2017-01-05] MEDS ORDERED: CARBOPROST 250 MCG/ML INJECTION IM PRN (07:15)
[2017-01-05] MEDS: LR 1,000 ML IV PRN ×2 (07:26→08:53)
[2017-01-05] MEDS ORDERED: OXYTOCIN DRIP 30 UNIT/500 ML ML IV PRN (07:30)
[2017-01-05] MEDS ORDERED: D5LR 1,000 ML IV PRN (07:30)
[2017-01-05 07:59] VITALS: BMI 26.8
--- NOTE | 2017-01-05 08:56 | OB/GYN Progress Note ---
- Pain Control Pain control: Epidural - Pelvic Exam Dilation (cm): 8 station: 0 Amniotic membrane status: Ruptured (AROM clear fluid) - Contractions Monitor mode: External Contraction pattern: Regular Contraction intensity: Strong/Firm - Status status: Category l - Assessment and Plan Assessment: induction ongoing (Expect vaginal delivery soon)
--- NOTE | 2017-01-05 09:55 | OB/GYN Procedure Note ---
Delivery date: 01/05/17 Procedure: Events: Labor Induction Intrapartal events: Precipitous Labor < 3 hours Induction method: per pitocin protocol Delivery augmentation: rupture of membranes Delivery monitor: external FHT Route of delivery: Episiotomy description: None Laceration description: Perineal - 2nd Degree Delivery repair: vicryl Estimated blood loss (mL): 300 Anesthesia type: Epidural Disposition: floor - Baby 1 gender: Female presentation: Vertex Placenta delivery description: Spontaneous cord vessel description: 3 Vessels at 1 minute: 8 at 5 minutes: 9 (See dictation)
--- NOTE | 2017-01-05 10:08 | Anesthesia Preoperative Report ---
Anesthesia Epidural/Spinal Rec - Date and Time Date: 01/05/17 Procedure: Labor Epidural Plan: Epidural - Vital Signs Vital Signs: Temperature 97.9 F 01/05/17 06:58 Pulse Rate 84 01/05/17 06:58 Blood Pressure 123/75 01/05/17 06:58 Pulse Oximetry 99 01/05/17 06:58 /Para: P:1 Heart Rate: 142 - Medictaions & Allergies Inpatient Medications: Current Medications Acetaminophen (Tylenol) 500 - 1,000 mg PO Q4H PRN PRN Reason: Pain Al Hydroxide/Mg Hydroxide (Maalox Plus) 30 ml PO Q3H PRN PRN Reason: Indigestion Calcium Carbonate (Tums) 500 - 1,000 mg PO Q2H PRN PRN Reason: Indigestion Carboprost Tromethamine (Hemabate) 250 mcg IM O PRN PRN Reason: .Downtime Dextrose/Lactated Ringer's (Dextrose 5%-Lactated Ringers) 1,000 mls @ 125 mls/ hr IV .Q8H PRN PRN Reason: Labor Last Admin: 01/05/17 07:30 Dose: 125 mls/hr Lactated Ringer's (Lactated Ringers) 1,000 mls @ 999 mls/hr IV .Q1H1M PRN Last Admin: 01/05/17 08:53 Dose: 999 mls/hr Oxytocin (Pitocin Drip) 30 unit in 500 mls @ 2 mls/hr IV .Q24H PRN; Protocol PRN Reason: Induction/Augmentation Last Admin: 01/05/17 07:29 Dose: 2 mls/hr Lidocaine HCl (Xylocaine-Mpf 1% Vial) 0.2 mg ID O PRN PRN Reason: IV Start Methylergonovine Maleate (Methergine) 0.2 mg IM O PRN Misoprostol (Cytotec) 800 mcg SC ONCE PRN Allergies/Adverse Reactions: Allergies Allergy/AdvReac Type Severity Reaction Status Date / Time Sulfa (Sulfonamide Allergy Intermediate Hives Verified 12/13/16 11:18 Antibiotics) - Home Medications Home Medications: Home Medications Medication Instructions Recorded Confirmed Type Vitamins 12/13/16 History - Medical History Respiratory: DENIES: Asthma, Bronchitis, Chronic Obstructive Pulmonary Disease (COPD), Dyspnea, Orthopnea, Pulmonary Embolism, Pneumonia, Upper Respiratory Infection, Pulmonary Edema, Sleep Apnea, Tuberculosis, Other Cardiovascular: DENIES: Abnormal EKG, Angina, Arrhythmia, Congestive Heart Failure, Coronary Artery Disease, Heart Murmur, Hypertension, Hypotension, High Cholesterol, Myocardial Infarction, Rheumatic Fever, Valvular Heart Disease, Other Gastrointestional: Reports: Gastroesophageal Reflux Disease (occasional) Neuro/Musculoskeletal: Denies: HX.MS.OSAR, Back Problems, Cerebrovascular Accident, Depression, Headaches, Loss of Consciousness, Muscle Weakness, Neuromuscular Disorder, Paralysis, Paresthesia, Syncope, Seizures, Other Renal/Endocrine: DENIES: Diabetes Mellitus Type 1, Diabetes Mellitus Type 2, Renal Failure, Dialysis, Thyroid Disease, Weight Loss, Weight Gain, Other Other History: Reports: Now - Social History Smoking Status: Never smoker Substance Use Type: does not use Alcohol Intake Frequency: does not drink - Pertinent Findings Lab Data: CBC and BMP 01/05/17 07:23 EKG Rhythm: Normal Sinus Rhythm - Physical Exam Respiratory Exam: lungs clear, bilateral breath sounds equal Cardiovascular Exam: regular rate and rhythm, no murmur - Airway Assessment Mallampati Score: II TMD: 3 Fingerbreadths Neck Extension: good Overall Assessment: may be difficult intubation - ASA ASA Score: 2 - Discussion Discussion: Discussed risks/options/alternatives of anesthesia and questions answered. Patient consents. Nursing pain assessment noted. Anesthesia Discussion: spouse Attestation Statement: Prior to the delivery of any anesthetic medication, I examined the patient, developed the plan, obtained the patient's consent and discussed the risk and benefits of the procedure with the patient/guardian.
[2017-01-05] MEDS ORDERED: DiphenhydrAMINE 25 MG CAPSULE PO PRN (10:20)
[2017-01-05] MEDS ORDERED: HYDROCORTISONE 2.5% CREAM 30gm RECTALLY PRN (10:20)
[2017-01-05] MEDS ORDERED: SALINE FLUSH 10ml SYRINGE IV PRN (10:20)
[2017-01-05] MEDS ORDERED: HYDROCODONE/APAP 5mg/325mg TABLET PO PRN (10:20)
[2017-01-05] MEDS: IBUPROFEN 800 MG TABLET PO PRN ×2 (13:03→22:33)
[2017-01-05] MEDS ORDERED: ROPIVACAINE 0.2% 2MG/ML INJ 40 MG, SUFentanil 50 MCG in NS 100 ML INFIL ONE (14:23)
[2017-01-06 00:46] VITALS: O2SAT 100
--- NOTE | 2017-01-06 07:19 | Anesthesia Postoperative Note ---
- Date and Time Date: 01/05/17 Time: 18:30 - Status Patient Participated in Evaluation: Patient Participated in Person Vital Signs: Temperature 98.2 F 01/05/17 22:55 Pulse Rate 54 L 01/05/17 22:55 Respiratory Rate 18 01/05/17 22:55 Blood Pressure 137/81 01/05/17 22:55 Pulse Oximetry 100 01/05/17 22:55 Respiratory Function: Airway Patent Cardiovascular Function: Regular Pulse EKG Rhythm: Normal Sinus Rhythm Mental Status: Alert and Oriented Hydration: Taking PO Fluids Complications During Recover: None Apparent Post Anesthesia Care Notes: Epidural Cath removed by RN intact. Pt tolerated labor and repair well. - Follow-Up Instructions Instructions: Per Surgeon
[2017-01-06 07:36] VITALS: BP 116/76; PULSE 68; RESP 16; TEMP 98.3
[2017-01-06] MEDS: IBUPROFEN 800 MG TABLET PO PRN (08:21)
[2017-01-06] MEDS ORDERED: DOCUSATE CALCIUM 240 MG CAPSULE PO SCH (09:00)
--- NOTE | 2017-01-06 09:59 | Discharge Instructions ---
Discharge Plan - Med Rec/Dispo Prescriptions: New Docusate Calcium [Surfak] 240 mg PO DAILY #30 cap Hydrocodone/APAP 5/325 [One[place] 5/325] 1 - 2 tab PO Q4H PRN #20 tab PRN Reason: Pain Ibuprofen [Motrin] 800 mg PO Q8H PRN #30 tab PRN Reason: Pain No Action Vitamins - Disposition 01 Discharged Home, Self-Care
--- NOTE | 2017-01-06 13:34 | Labor and Delivery Note ---
DATE OF DELIVERY 01/05/2017 DELIVERY NOTE Normal spontaneous vaginal delivery of a live female infant in the OA position over intact perineum with epidural anesthesia. No meconium was noted. The mouth and nose were suctioned after delivery. There was spontaneous delivery of the placenta with a 3-vessel cord. The patient had a first-degree labial that extended to a periurethral and a second-degree vaginal right side that did not extend to the perineum. Estimated blood loss was 300 ml. The patient presented for induction of labor after flaquito all night, was noted to be 4 on admission and Pitocin was started. Pitocin reached a maximum of 4 units and at 8:00 a.m. the patient had requested an epidural. The patient was noted to be 8 cm at 9:00 a.m. and rupture of amniotic sac was performed, noting clear fluid. Tolerated by mom and baby. Patient continued to progress quickly and by 9:30 was complete and pushing. She pushed for approximately 10 minutes and delivered the head. At this time a mild shoulder dystocia was noted and the patient was relaxed in normal position and then Judy. At this time the posterior arm presented itself and was delivered, which happened to be the right arm, with the left arm under the maternal pubic bone. Infant body delivery spontaneously after that. Total time from delivery of head to delivery of fetus was less than one minute. Apgars were noted to be 8/9 and weight was 8 pounds, 15 ounces. MTDD
== END 2017-01-06 14:47 | disposition home or self-care (01) | DRG 775 ==
LOC: MC 07:01
PROVIDERS: ADMIT Obstetrics & Gynecology; ATTEND Obstetrics & Gynecology